=== PATIENT | male | born 1995 | race African-American/Black ===

== ENCOUNTER 2021-02-11 16:44 | Emergency (ER) | payer MEDICAID ==
[~2021-02-11] VITALS: Ht 170.2 cm; Wt 60.8 kg
[2021-02-11 16:50] VITALS: BP 117/70
[2021-02-11 17:40] LABS: MICROSCOPIC INDICATED
--- NOTE | 2021-02-11 17:54 | NUR ---
PT walked back from triage with chief complaint of white discharge from penis since yesterday.
[2021-02-11] MEDS ORDERED: CEFTRIAXONE 1,000 MG IM ONE (18:30)
[2021-02-11] MEDS ORDERED: CEFTRIAXONE 1,000 MG ONE (18:37)
--- NOTE | 2021-02-11 18:40 | NUR ---
dc instructions reviewed
== END 2021-02-11 18:47 | disposition home or self-care (01) ==
LOC: ED 18:00
DX: A56.01 Chlamydial cystitis and urethritis (principal)
CPT/HCPCS: 81001; 87086; 87491; 87591; 96372; 99283; J0696; 87077